=== PATIENT | male | born 1970 | race Hispanic/Latino ===

== ENCOUNTER 2024-09-05 18:59 | Emergency (ER) | payer BC ==
[~2024-09-05] VITALS: Ht 177.8 cm; Wt 93.0 kg
[2024-09-05 20:11] LABS: STREPTOCOCCUS GRP A ANTIGEN NEGATIVE (NEGATIVE)
[2024-09-05 20:19] LABS: CORONAVIRUS COVID-19 AG NEGATIVE (NEGATIVE); INFLUENZA A AG NEGATIVE (NEGATIVE); INFLUENZA B AG NEGATIVE (NEGATIVE)
[2024-09-05 21:39] VITALS: PULSE 83; RESP 18; TEMP 99.6; O2SAT 98
[2024-09-05] MEDS ORDERED: VENTOLIN HFA18 GM INH (21:40)
[2024-09-05] MEDS ORDERED: PREDNISONE20 MG PO (21:40)
[2024-09-05] MEDS ORDERED: AZITHROMYCIN250 MG PO (21:40)
== END 2024-09-05 21:42 | disposition home or self-care (01) ==
LOC: EDSEX 18:59 → ER 19:10
DX: R05.9 Cough, unspecified (principal); J06.9 Acute upper respiratory infection, unspecified; M54.6 Pain in thoracic spine; E78.5 Hyperlipidemia, unspecified; R94.31 Abnormal electrocardiogram [ECG] [EKG]; Z82.49 Family history of ischemic heart disease and other diseases of the circulatory system
CPT/HCPCS: 71046; 83518; 87070; 93005; 99283